=== PATIENT | female | born 1955 | race Caucasian/White ===

== ENCOUNTER 2020-05-04 08:00 | Outpatient (RCR) | payer MEDICARE, OTHER | END 2020-06-18 | disposition still patient (30) | LOC: PT | DX: M25.551 Pain in right hip (principal); M54.41 Lumbago with sciatica, right side; G89.29 Other chronic pain ==

== ENCOUNTER → 2020-06-01 | Outpatient (CLI) | payer MEDICARE, OTHER | LOC: RAD 09:41 | DX: M51.16 Intervertebral disc disorders with radiculopathy, lumbar region (principal) ==